=== PATIENT | female | born 2000 | race Caucasian/White ===

== ENCOUNTER 2021-02-10 17:51 | Inpatient (IN) | payer OTHER ==
[~2021-02-10] VITALS: Ht 157.5 cm; Wt 64.9 kg
[2021-02-10] MEDS ORDERED: LORazepam 2 MG TABLET PO PRN (19:30)
[2021-02-10] MEDS ORDERED: OLANZapine 5 MG RAPDIS TABLET PO PRN (19:30)
[2021-02-10 21:03] LABS: BASOPHILS % (AUTO) 0.6 % (0.0-2.0); EOSINOPHILS % (AUTO) 0.4 % (1.0-6.0); HEMATOCRIT 40.5 % (36-46); HEMOGLOBIN 13.6 g/dL (12.0-16.0); LYMPHOCYTES % (AUTO) 34.3 % (22.0-44.0); MEAN CORPUSCULAR HEMOGLOBIN 29.9 pg (26.0-34.0); MEAN CORPUSCULAR HGB CONC 33.5 G/dL (31.0-37.0); MEAN CORPUSCULAR VOLUME 89 fL (80-100); MONOCYTES # (AUTO) 0.5 K/uL (0.1-1.0); NEUTROPHILS # (AUTO) 5.1 K/uL (1.8-7.7); NEUTROPHILS % (AUTO) 58.7 % (40.0-70.0); PLATELET COUNT (AUTO) 286 K/uL (150-450); RED BLOOD CELL COUNT(AUTO) 4.54 MIL/uL (4.00-5.20); RED CELL DISTRIBUTION WIDTH 13.6 % (11.5-14.5)
[2021-02-10 21:14] LABS: ANION GAP 5 mmol/L (8-16); CALCIUM, TOTAL 9.1 mg/dL (8.8-10.5); CARBON DIOXIDE 28 mmol/L (22-29); CHLORIDE 103 mmol/L (98-107); CREATININE 0.65 mg/dL (0.60-1.30); GLOMERULAR FILTR. RATE CALC > 60 mL/min (>60); GLUCOSE,RANDOM 85 mg/dL (70-110); POTASSIUM 3.8 mmol/L (3.5-5.1); SODIUM SERUM 136 mmol/L (136-145); UREA NITROGEN, BLOOD 8 mg/dL (7-18)
[2021-02-10 21:23] LABS: ALANINE AMINOTRANSFERASE 32 U/L (12-78); ALBUMIN 4.2 g/dL (3.4-5.0); ALKALINE PHOSPHATASE 59 U/L (46-116); ASPARTATE AMINOTRANSFERASE 23 U/L (15-37); BILIRUBIN,TOTAL 0.5 mg/dL (0.1-1.0); HCG,QUANTITATIVE < 1 mIU/mL (0-6); TOTAL PROTEIN, SERUM 7.3 g/dL (6.4-8.2)
[2021-02-10 23:27] LABS: COVID AG,FIA SOURCE NASOPHARYNGEAL
[2021-02-11] MEDS: ZOLPIDEM TARTRATE 10 MG TABLET PO PRN (03:51)
[2021-02-11 03:59] LABS: CHOL/HDL RATIO 2.8 (3.9-5.7); CHOLESTEROL 169 mg/dL (131-200); HDL CHOLESTEROL 61 mg/dL (40-60); LDL CHOL (CALC.) 95 mg/dL (0-130); TRIGLYCERIDES 65 mg/dL (15-150)
[2021-02-11] MEDS ORDERED: TUBERCULIN, PURIFIED PROTEIN DERIVATIVE 5 TU/0.1 ML SYRINGE ID ONE (09:15)
[2021-02-11] MEDS ORDERED: MAGNESIUM HYDROXIDE SUSPENSION 30 ML UDCUP PO PRN (09:15)
[2021-02-11] MEDS ORDERED: GuaiFENesin/D-METHORPHAN [SUGAR-FREE] 200-20MG/10 ML SYRUP UDCUP PO PRN (09:15)
[2021-02-11] MEDS ORDERED: ACETAMINOPHEN 325 MG TABLET PO PRN (09:15)
[2021-02-11] MEDS ORDERED: LOPERAMIDE HCL 2 MG CAPSULE PO PRN (09:15)
[2021-02-11] MEDS ORDERED: MAG HYDROX/AL HYDROX/SIMETH ES 30 ML SUSPENSION UDCUP PO PRN (09:15)
[2021-02-11] MEDS ORDERED: PROMETHAZINE HCL 25 MG TABLET PO PRN (09:15)
[2021-02-11] MEDS ORDERED: HydrOXYzine PAMOATE 50 MG CAPSULE PO PRN (09:15)
[2021-02-11 09:45] VITALS: BP 130/73
[2021-02-11 10:16] VITALS: BP 130/73
[2021-02-11 16:00] VITALS: BP 100/70
[2021-02-11 16:30] VITALS: BP 100/70
[2021-02-11] MEDS ORDERED: GABAPENTIN 300 MG CAPSULE PO PRN (16:30)
[2021-02-11] MEDS: GABAPENTIN 300 MG CAPSULE PO SCH (17:33)
[2021-02-11] MEDS: THIAMINE 100 MG TABLET PO SCH (17:33)
[2021-02-11] MEDS: LamoTRIgine 100 MG TABLET PO SCH (20:08)
[2021-02-11] MEDS: MELATONIN 5 MG TABLET PO SCH (20:08)
[2021-02-11] MEDS: TraZODone HCL 50 MG TABLET PO SCH (20:08)
[2021-02-11] MEDS ORDERED: TraZODone HCL 100 MG TABLET PO SCH (21:00)
[2021-02-11] MEDS ORDERED: LURASIDONE HCL 40 MG TABLET PO SCH (21:00)
[2021-02-11] MEDS ORDERED: OLANZapine 10 MG RAPDIS TABLET PO SCH (21:00)
[2021-02-12 06:00] VITALS: BP 118/72
[2021-02-12 08:03] VITALS: BP 103/60
[2021-02-12] MEDS: FOLIC ACID 1 MG TABLET PO SCH (08:34)
[2021-02-12] MEDS: OMEGA-3/DHA/EPA/FISH OIL 1,000 MG CAPSULE PO SCH (08:34)
[2021-02-12] MEDS: THIAMINE 100 MG TABLET PO SCH ×2 (08:34→16:18)
[2021-02-12] MEDS: MULTIVITAMINS WITH MINERALS, THERAPEUTIC TABLET PO SCH (08:34)
[2021-02-12] MEDS: GABAPENTIN 300 MG CAPSULE PO SCH ×3 (08:34→16:18)
[2021-02-12] MEDS: NALTREXONE HCL 50 MG TABLET PO SCH (08:34)
[2021-02-12] MEDS ORDERED: FLUoxetine HCL 20 MG CAPSULE PO SCH (09:00)
[2021-02-12 16:25] VITALS: BP 114/85
[2021-02-12] MEDS: LamoTRIgine 100 MG TABLET PO SCH (20:37)
[2021-02-12] MEDS: ZOLPIDEM TARTRATE 10 MG TABLET PO PRN ×2 (20:37→22:16)
[2021-02-12] MEDS: TraZODone HCL 50 MG TABLET PO SCH (20:37)
[2021-02-12] MEDS: MELATONIN 5 MG TABLET PO SCH (20:56)
[2021-02-12] MEDS: LURASIDONE HCL 20 MG TABLET PO PRN (20:56)
[2021-02-12] MEDS ORDERED: LURASIDONE HCL 60 MG TABLET PO SCH (21:00)
[2021-02-13 01:28] VITALS: BP 102/69
[2021-02-13] MEDS: OMEGA-3/DHA/EPA/FISH OIL 1,000 MG CAPSULE PO SCH (08:12)
[2021-02-13] MEDS: FOLIC ACID 1 MG TABLET PO SCH (08:12)
[2021-02-13] MEDS: GABAPENTIN 300 MG CAPSULE PO SCH ×3 (08:12→16:19)
[2021-02-13] MEDS: MULTIVITAMINS WITH MINERALS, THERAPEUTIC TABLET PO SCH (08:12)
[2021-02-13] MEDS: THIAMINE 100 MG TABLET PO SCH ×2 (08:12→16:19)
[2021-02-13 08:18] VITALS: BP 106/62
[2021-02-13] MEDS: NALTREXONE HCL 50 MG TABLET PO SCH (09:11)
[2021-02-13] MEDS ORDERED: LORazepam 0.5 MG TABLET PO ONE (11:15)
[2021-02-13] MEDS ORDERED: LORazepam 0.5 MG TABLET PO PRN (11:15)
[2021-02-13] MEDS: LURASIDONE HCL 20 MG TABLET PO PRN (11:45)
[2021-02-13] MEDS ORDERED: TRAZ-252 PO (13:28)
[2021-02-13] MEDS ORDERED: LURA60TA PO (13:28)
[2021-02-13] MEDS ORDERED: LAMO100 PO (13:28)
[2021-02-13] MEDS ORDERED: OMEG-135 PO (13:28)
[2021-02-13] MEDS ORDERED: GABA-1181 PO (13:28)
[2021-02-13] MEDS ORDERED: NALT50TA PO (13:28)
[2021-02-13] MEDS ORDERED: MELA5TAB3 PO (13:28)
[2021-02-13 16:06] VITALS: BP 119/70
== END 2021-02-13 22:43 | disposition home or self-care (01) | DRG 885 ==
LOC: EMS 17:51 → B3A 02-11 06:23
PROVIDERS: ADMIT Psychiatry & Neurology Psychiatry; ATTEND Psychiatry & Neurology Psychiatry
DX: F31.30 Bipolar disorder, current episode depressed, mild or moderate severity, unspecified (principal); Z20.822 Contact with and (suspected) exposure to COVID-19; F41.0 Panic disorder [episodic paroxysmal anxiety]; F12.90 Cannabis use, unspecified, uncomplicated
CPT/HCPCS: 80053; 80061; 84702; 85025; 99285; A9575; G0480

== ENCOUNTER 2021-10-27 14:25 | Inpatient (IN) | payer MEDICAID, OTHER ==
[~2021-10-27] VITALS: Ht 157.5 cm; Wt 59.9 kg
[~2021-10-27 14:25] MED LIST: GABA-1181 PO; LAMO100 PO; LURA60TA PO; MELA5TAB40 PO; NALT50TA PO; OMEG-108 PO; TRAZ-252 PO
[2021-10-27 16:04] LABS: BASOPHILS % (AUTO) 0.3 % (0.0-2.0); EOSINOPHILS % (AUTO) 0.1 % (1.0-6.0); HEMATOCRIT 41.3 % (36-46); LYMPHOCYTES # (AUTO) 1.5 K/uL (1.0-4.8); MEAN CORPUSCULAR HEMOGLOBIN 29.6 pg (26.0-34.0); MEAN CORPUSCULAR HGB CONC 33.9 G/dL (31.0-37.0); MEAN CORPUSCULAR VOLUME 87 fL (80-100); MONOCYTES # (AUTO) 0.8 K/uL (0.1-1.0); MONOCYTES % (AUTO) 6.1 % (2.0-9.0); NEUTROPHILS # (AUTO) 10.3 K/uL (1.8-7.7); NEUTROPHILS % (AUTO) 81.5 % (40.0-70.0); PLATELET COUNT (AUTO) 278 K/uL (150-450); RED BLOOD CELL COUNT(AUTO) 4.73 MIL/uL (4.00-5.20); RED CELL DISTRIBUTION WIDTH 13.5 % (11.5-14.5)
[2021-10-27 16:19] LABS: ANION GAP 15 mmol/L (8-16); CALCIUM, TOTAL 9.4 mg/dL (8.8-10.5); CARBON DIOXIDE 25 mmol/L (22-29); CHLORIDE 102 mmol/L (98-107); CREATININE 0.75 mg/dL (0.60-1.30); GLOMERULAR FILTR. RATE CALC > 60 mL/min (>60); GLUCOSE,RANDOM 79 mg/dL (70-110); SODIUM SERUM 142 mmol/L (136-145); UREA NITROGEN, BLOOD 13 mg/dL (7-18)
[2021-10-27 16:25] LABS: ALANINE AMINOTRANSFERASE 20 U/L (12-78); ALBUMIN 4.7 g/dL (3.4-5.0); ALKALINE PHOSPHATASE 50 U/L (46-116); ASPARTATE AMINOTRANSFERASE 20 U/L (15-37); BILIRUBIN,TOTAL 0.7 mg/dL (0.1-1.0); TOTAL PROTEIN, SERUM 8.2 g/dL (6.4-8.2)
[2021-10-27 17:59] LABS: COVID AG,FIA SOURCE NASAL SWAB
[2021-10-27 20:35] LABS: AMPHET/METH SCREEN,URINE NEGATIVE (NEGATIVE); BARBITURATE SCREEN, URINE NEGATIVE (NEGATIVE); BENZODIAZEPINES SCREEN,URINE NEGATIVE (NEGATIVE); CANNABINOID SCREEN,URINE POSITIVE (NEGATIVE); COCAINE SCREEN,URINE NEGATIVE (NEGATIVE); METHADONE SCREEN, URINE NEGATIVE (NEGATIVE); OPIATE SCREEN,URINE NEGATIVE (NEGATIVE)
[2021-10-27 20:37] LABS: PHENCYCLIDINE SCREEN,URINE NEGATIVE (NEGATIVE)
[2021-10-27] MEDS ORDERED: LORazepam 2 MG TABLET PO PRN (23:45)
[2021-10-27] MEDS ORDERED: OLANZapine 5 MG RAPDIS TABLET PO PRN (23:45)
[2021-10-27] MEDS ORDERED: ZOLPIDEM TARTRATE 10 MG TABLET PO PRN (23:45)
[2021-10-28 02:44] LABS: APPEARANCE,URINE TURBID (CLEAR); BILIRUBIN,URINE NEGATIVE (NEGATIVE); GLUCOSE, URINE (UA) NEGATIVE (NEGATIVE); KETONES,URINE =>150 mg/dL (NEGATIVE); LEUKOCYTE ESTERASE ,URINE NEGATIVE (NEGATIVE); NITRATE,URINE NEGATIVE (NEGATIVE); OCCULT BLOOD,URINE MODERATE (NEGATIVE); PROTEIN,URINE 100-200,SEE CONFIRM mg/dL (NEGATIVE); SPECIFIC GRAVITIY, URINE 1.028 (1.003-1.030); UROBILINOGEN,URINE <=1.0 mg/dL (<=1.0)
[2021-10-28 02:54] LABS: BACTERIA,URINE None Seen /HPF (None Seen); SQUAMOUS EPITHELIAL CELL,UR Rare /LPF (None Seen); SULFOSALICYLIC ACID,URINE Negative (Negative); WBC,URINE 0-2 /HPF (0-5)
[2021-10-28 02:55] LABS: CALCIUM OXALATE CRYSTALS,UR Few /LPF (None Seen); MUCUS,URINE Few LPF (None Seen)
[2021-10-28] MEDS: ACETAMINOPHEN 325 MG TABLET PO PRN (13:00)
[2021-10-28 13:19] VITALS: BP 130/78
[2021-10-28] MEDS ORDERED: INFLUENZA VIRUS VACCINE QVS 2021-22 (6MO+)/PF 60 MCG/0.5 ML SYRINGE IM. ONE (13:45)
[2021-10-28 16:28] VITALS: BP 124/78
[2021-10-28] MEDS ORDERED: ZOLPIDEM TARTRATE 5 MG TABLET PO PRN (21:45)
[2021-10-28] MEDS ORDERED: ChlorproMAZINE HCL 50 MG TABLET PO PRN (21:45)
[2021-10-28] MEDS ORDERED: LORazepam 0.5 MG TABLET PO PRN (23:45)
[2021-10-29 00:40] VITALS: BP 122/76
[2021-10-29 07:07] LABS: BASOPHILS % (AUTO) 0.4 % (0.0-2.0); EOSINOPHILS % (AUTO) 1.7 % (1.0-6.0); HEMATOCRIT 40.7 % (36-46); HEMOGLOBIN 13.8 g/dL (12.0-16.0); LYMPHOCYTES # (AUTO) 2.5 K/uL (1.0-4.8); LYMPHOCYTES % (AUTO) 34.6 % (22.0-44.0); MEAN CORPUSCULAR HEMOGLOBIN 29.6 pg (26.0-34.0); MEAN CORPUSCULAR HGB CONC 33.8 G/dL (31.0-37.0); MEAN CORPUSCULAR VOLUME 88 fL (80-100); MONOCYTES # (AUTO) 0.7 K/uL (0.1-1.0); MONOCYTES % (AUTO) 10.3 % (2.0-9.0); NEUTROPHILS # (AUTO) 3.8 K/uL (1.8-7.7); PLATELET COUNT (AUTO) 265 K/uL (150-450); RED BLOOD CELL COUNT(AUTO) 4.64 MIL/uL (4.00-5.20); RED CELL DISTRIBUTION WIDTH 13.7 % (11.5-14.5)
[2021-10-29 07:33] LABS: HEMOGLOBIN A1C 4.7 % (3.8-5.6)
[2021-10-29 07:37] LABS: CHOL/HDL RATIO 3.1 (3.9-5.7); FREE T4 (FREE THYROXINE) 1.29 ng/dL (0.76-1.46); THYROID STIMULATING HORMONE 1.29 uIU/mL (0.36-3.74)
[2021-10-29 08:05] VITALS: BP 113/84
[2021-10-29] MEDS: GABAPENTIN 100 MG CAPSULE PO SCH ×3 (08:18→16:20)
[2021-10-29] MEDS: ACETAMINOPHEN 325 MG TABLET PO PRN ×2 (10:42→16:55)
[2021-10-29] MEDS ORDERED: MAGNESIUM HYDROXIDE SUSPENSION 30 ML UDCUP PO PRN (12:45)
[2021-10-29 16:09] VITALS: BP 110/73
[2021-10-29] MEDS ORDERED: LamoTRIgine 25 MG TABLET PO SCH (21:00)
[2021-10-29] MEDS ORDERED: TraZODone HCL 50 MG TABLET PO SCH (21:00)
[2021-10-29] MEDS ORDERED: DOCUSATE SODIUM 250 MG CAPSULE PO SCH (21:00)
[2021-10-30 00:59] VITALS: BP 102/64
[2021-10-30 08:09] VITALS: BP 104/75
[2021-10-30] MEDS: GABAPENTIN 100 MG CAPSULE PO SCH ×3 (08:12→16:43)
[2021-10-30] MEDS ORDERED: LAMO25TA25 PO (09:47)
[2021-10-30] MEDS ORDERED: GABA-1216 PO (09:48)
[2021-10-30] MEDS ORDERED: DOCU-350 PO (09:49)
[2021-10-30 16:24] VITALS: BP 137/80
== END 2021-10-30 17:03 | disposition home or self-care (01) | DRG 753 ==
LOC: EMS 14:25 → B2S 10-28 09:21
PROVIDERS: ADMIT Psychiatry & Neurology Psychiatry; ATTEND Psychiatry & Neurology Psychiatry
DX: F31.81 Bipolar II disorder (principal); R45.851 Suicidal ideations; Z20.822 Contact with and (suspected) exposure to COVID-19; F41.9 Anxiety disorder, unspecified; Y04.8XXA Assault by other bodily force, initial encounter; S60.222A Contusion of left hand, initial encounter; F12.90 Cannabis use, unspecified, uncomplicated; Z23 Encounter for immunization; Y93.89 Activity, other specified; Y92.89 Other specified places as the place of occurrence of the external cause; Y99.8 Other external cause status; Z79.899 Other long term (current) drug therapy; Z56.0 Unemployment, unspecified
CPT/HCPCS: 80053; 80061; 81001; 81002; 83036; 84439; 84443; 84702; 85025; 90686; 99285; G0480